=== PATIENT | female | born 1950 | race American Indian/Alaskan Native ===

== ENCOUNTER 2018-09-08 00:21 | Observation (INO) | payer SELFPAY ==
[2018-09-08 01:10] LABS: Basophils % (Auto) 0.1 % (0.0-1.8); Hematocrit 41.2 % (30.3-42.9); Hemoglobin 13.9 gm/dl (10.1-14.3); Lymphocytes % (Auto) 7.9 % (13.4-35.0); Mean Corpuscular HGB Conc 34 % (30-34); Mean Corpuscular Volume 86 fl (79-97); Monocytes # (Auto) 0.6 K/mm3 (0.0-0.8); Monocytes % (Auto) 4.9 % (0.0-7.3); Platelet Count 278 K/mm3 (140-440); Red Blood Count 4.79 M/mm3 (3.65-5.03); Red Cell Distribution Width 13.6 % (13.2-15.2)
[2018-09-08 01:36] LABS: Alanine Aminotransferase 16 units/L (7-56); Albumin 4.1 g/dL (3.9-5); BUN/Creatinine Ratio 14; Blood Urea Nitrogen 11 mg/dL (7-17); Calcium 9.5 mg/dL (8.4-10.2); Hemolysis Index 9
[2018-09-08 03:48] LABS: Bacteria,Urine 1+ /HPF (Negative); Bilirubin,Urine NEG (Negative); Blood,Urine SM (Negative); Color,Urine Yellow (Yellow); Mucus,Urine FEW /HPF
[2018-09-08] MEDS: NACL 0.9% 1000 ML 1,000 ML IV ONE ×2 (04:11→06:38)
[2018-09-08] MEDS ORDERED: ZOFRAN ONE (06:32)
[2018-09-08] MEDS ORDERED: TORADOL ONE (06:32)
[2018-09-08] MEDS ORDERED: TORADOL IV ONE (06:42)
[2018-09-08] MEDS ORDERED: ZOFRAN IV ONE (06:42)
--- NOTE | 2018-09-08 07:10 | Emergency Department Report ---
ED Abdominal Pain HPI - General Chief Complaint: Abdominal Pain Stated Complaint: EMESIS Source: patient Mode of arrival: Wheelchair Limitations: No Limitations - History of Present Illness Initial Comments: This is a 68-year-old -[place] female who presents with nausea, vomiting, no abdominal pain starting yesterday. Patient states she went to an urgent care clinic and was started on Zofran and told to modify diet. She was told to follow-up in the emergency room if symptoms increase. Patient reports pain is 10 out of 10 on pain scale and sharp stabbing sensation. She denies diarrhea, chest pain, urinary frequency, urgency, dysuria, hematuria. MD Complaint: abdominal pain Severity scale (0 -10): 5 - Related Data Allergies Allergy/AdvReac Type Severity Reaction Status Date / Time acetaminophen [From Vicodin] Allergy Unknown Verified 09/08/18 00:38 hydrocodone [From Vicodin] Allergy Unknown Verified 09/08/18 00:38 ondansetron Allergy Unknown Verified 09/08/18 00:38 ED Review of Systems ROS: Stated complaint: EMESIS Other details as noted in HPI ED Past Medical Hx - Past Medical History Previous Medical History?: No - Surgical History Past Surgical History?: Yes Additional Surgical History: - Social History Smoking Status: Never Smoker Substance Use Type: None ED Physical Exam - General Limitations: No Limitations ED Course Vital Signs 09/08/18 09/08/18 00:36 05:12 Temperature 97.9 F 98.0 F Pulse Rate 72 81 Respiratory 18 18 Rate Blood Pressure 109/60 126/61 O2 Sat by Pulse 98 99 Oximetry ED Medical Decision Making - Lab Data Result diagrams: 09/08/18 00:49 09/08/18 00:49 Lab Results 09/08/18 09/08/18 09/08/18 Range/Units 00:49 00:49 01:32 WBC 12.3 H (4.5-11.0) K/mm3 RBC 4.79 (3.65-5.03) M/mm3 Hgb 13.9 (10.1-14.3) gm/dl Hct 41.2 (30.3-42.9) % MCV 86 (79-97) fl MCH 29 (28-32) pg MCHC 34 (30-34) % RDW 13.6 (13.2-15.2) % Plt Count 278 (140-440) K/mm3 Lymph % (Auto) 7.9 L (13.4-35.0) % [place] % (Auto) 4.9 (0.0-7.3) % Eos % (Auto) 0.0 (0.0-4.3) % Baso % (Auto) 0.1 (0.0-1.8) % Lymph # 1.0 L (1.2-5.4) K/mm3 [place] # 0.6 (0.0-0.8) K/mm3 Eos # 0.0 (0.0-0.4) K/mm3 Baso # 0.0 (0.0-0.1) K/mm3 Seg Neutrophils % 87.1 H (40.0-70.0) % Seg Neutrophils # 10.7 H (1.8-7.7) K/mm3 Sodium 136 L (137-145) mmol/L Potassium 3.8 (3.6-5.0) mmol/L Chloride 98.5 (98-107) mmol/L Carbon Dioxide 21 L (22-30) mmol/L Anion Gap 20 mmol/L BUN 11 (7-17) mg/dL Creatinine 0.8 (0.7-1.2) mg/dL Estimated GFR > 60 ml/min BUN/Creatinine Ratio 14 % Glucose 128 H (65-100) mg/dL Calcium 9.5 (8.4-10.2) mg/dL Total Bilirubin 0.70 (0.1-1.2) mg/dL AST 18 (5-40) units/L ALT 16 (7-56) units/L Alkaline Phosphatase 102 (35-129) units/L Total Protein 7.4 (6.3-8.2) g/dL Albumin 4.1 (3.9-5) g/dL Albumin/Globulin Ratio 1.2 % Lipase 17 (13-60) units/L Urine Color Yellow (Yellow) Urine Turbidity Clear (Clear) Urine pH 6.0 (5.0-7.0) Ur Specific [place] 1.039 H (1.003-1.030) Urine Protein 30 mg/dl (Negative) mg/dL Urine Glucose (UA) Neg (Negative) mg/dL Urine Ketones Tr (Negative) mg/dL Urine Blood Sm (Negative) Urine Nitrite Neg (Negative) Urine Bilirubin Neg (Negative) Urine Urobilinogen 4.0 (<2.0) mg/dL Ur Leukocyte Esterase Neg (Negative) Urine WBC (Auto) 4.0 (0.0-6.0) /HPF Urine RBC (Auto) 11.0 (0.0-6.0) /HPF U Epithel Cells (Auto) 5.0 (0-13.0) /HPF Urine Bacteria (Auto) 1+ (Negative) /HPF Urine Mucus Few /HPF - Radiology Data Radiology results: report reviewed CT ABDOMEN PELVIS WITH CONTRAST: HISTORY: Diffuse abdominal tenderness. COMPARISON: none. TECHNIQUE: Helical CT in 1.25mm intervals following IV contrast. Sagittal and coronal reconstructions. FINDINGS: Lung bases: Trace bilateral pleural effusions. The visualized lung bases are adequately aerated. Normal heart size. Liver: Normal. Biliary system: Normal. Pancreas: Normal. Spleen: Normal. Kidneys/ureters/bladder: Normal. Adrenal glands: Normal. Aorta: Normal. Intestines: Within normal limits. Appendix: An appendicolith is identified near the base of the appendix. The appendix is dilated up to 1.5 cm in diameter and demonstrates mucosal enhancement and surrounding inflammatory changes. There is a small amount of pelvic ascites but no abscess or free air is appreciated. Pelvic viscera: There are a few calcifications in the anterior uterine wall suggesting mild uterine fibroid disease. The adnexa are unremarkable. Ascites: Small pelvic ascites. Adenopathy: None. Musculoskeletal: Mild thoracolumbar spondylosis. IMPRESSION: Acute appendicitis. No evidence for rupture at this time. Trace bilateral pleural effusions. Mild uterine fibroid disease. - Medical Decision Making Patient was examined by me. Vitals are normal and patient is in no acute distress. IV site initiated. Given normal saline, Toradol, and Zofran. Obtained a labs and CT of abdomen and pelvis with contrast. The leukocytosis, although the labs are unremarkable. CT dictated per radiologist report reviewed by myself. Acute appendicitis. No evidence for rupture at this time. Trace bilateral pleural effusions. Mild uterine fibroid disease. Consulted with standing. Consult general surgeon Dr. Calixto. Patient will be admitted for surgery. Consulted hospitalist Dr. Herring for admission. Given zosyn 4.5 gm and morphine 2 mg IV. Pending admission. Critical care attestation.: If time is entered above; I have spent that time in minutes in the direct care of this critically ill patient, excluding procedure time. ED Disposition Clinical Impression: Nausea and vomiting in adult Acute appendicitis Qualifiers: Acute appendicitis type: with localized peritonitis Appendicitis gangrene presence: without gangrene Appendicitis perforation presence: without perforation Appendicitis abscess presence: unspecified whether abscess present Qualified Code(s): K35.30 - Acute appendicitis with localized peritonitis, without perforation or gangrene Abdominal pain Qualifiers: Abdominal location: generalized Qualified Code(s): R10.84 - Generalized abdominal pain Disposition: -09 OP ADMIT IP TO THIS HOSP Is pt being admited?: Yes Condition: Stable Instructions: Abdominal Pain (ED) Referrals: LIDA SANCHEZ MD [Primary Care Provider] - 3-5 Days
--- NOTE | 2018-09-08 08:40 | Cat Scan Report ---
CT ABDOMEN PELVIS WITH CONTRAST: HISTORY: Diffuse abdominal tenderness. COMPARISON: none. TECHNIQUE: Helical CT in 1.25mm intervals following IV contrast. Sagittal and coronal reconstructions. FINDINGS: Lung bases: Trace bilateral pleural effusions. The visualized lung bases are adequately aerated. Normal heart size. Liver: Normal. Biliary system: Normal. Pancreas: Normal. Spleen: Normal. Kidneys/ureters/bladder: Normal. Adrenal glands: Normal. Aorta: Normal. Intestines: Within normal limits. Appendix: An appendicolith is identified near the base of the appendix. The appendix is dilated up to 1.5 cm in diameter and demonstrates mucosal enhancement and surrounding inflammatory changes. There is a small amount of pelvic ascites but no abscess or free air is appreciated. Pelvic viscera: There are a few calcifications in the anterior uterine wall suggesting mild uterine fibroid disease. The adnexa are unremarkable. Ascites: Small pelvic ascites. Adenopathy: None. Musculoskeletal: Mild thoracolumbar spondylosis. IMPRESSION: Acute appendicitis. No evidence for rupture at this time. Trace bilateral pleural effusions. Mild uterine fibroid disease. These findings were discussed with Shawna Barber in the emergency department at 0832 hours
[2018-09-08] MEDS ORDERED: ZOSYN/NS 4.5GM/100ML 4.5 GM/100 ML VIAL IV ONE (08:57)
[2018-09-08] MEDS ORDERED: MORPHINE IV ONE (09:11)
[2018-09-08] MEDS ORDERED: REGLAN IV PRN (10:56)
--- NOTE | 2018-09-08 11:02 | History and Physical Report ---
History of Present Illness Date of examination: 09/08/18 Date of admission: 09/08/18 09:03 Chief complaint: N/V and Abdominal pains History of present illness: Patient is a 68 yo woman without chronic medical problems who presents to [facility] ED with severe sharp constant Right sided abdominal pains and radiating pains across entire abdomen in a band like fashion. She was at her baseline until yesterday morning when she felt nauseated and she drunk Jazmín skye without r elief. She went to work at [employer] and started vomiting repeatedly. 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 She was given Ondansetron and advise to sip on water for 24 hours. She continued to have nausea and vomiting so she listed Ondansetron as a drug allergy (Vicodin also listed as drug allergy and it causes n/v). The right sided abdominal pains worsened and she decided to come to the ER today. She denies fever, chills, chest pains, sob, cough. PMH: as hpi PSH: x 1 SH: nonsmoker, no alcohol or drug abuse FH: mother of unspecified cancer ROS: Constitutional: denies: fever ENT: denies: throat or neck pain Respiratory: denies: cough, shortness of breath Cardiovascular: denies: chest pain Endocrine: denies unexplained weight loss or gain Gastrointestinal: + abdominal pain, nausea Genitourinary: denies: dysuria Rectal: denies no incontinence, no bleeding, no itching, no discharge Musculoskeletal: denies swelling, myaglia, muscle weakness Skin: denies: rash Neurological: denies: headache Hematological/Lymphatic: denies: easy bleeding or easy bruising Allergic/Immunologic: no urticaria, no allergic rhinitis, no anaphylaxis Psych: denies sadness or hopelessness, SI/HI Medications and Allergies Allergies Allergy/AdvReac Type Severity Reaction Status Date / Time acetaminophen [From Vicodin] Allergy Unknown Verified 09/08/18 00:38 hydrocodone [From Vicodin] Allergy Unknown Verified 09/08/18 00:38 ondansetron Allergy Unknown Verified 09/08/18 00:38 Home Medications Medication Instructions Recorded Confirmed Last Taken Type No Known Home Medications [No 09/08/18 09/08/18 Unknown History Reported Home Medications] Active Meds: Active Medications Heparin Sodium (Porcine) (Heparin) 5,000 unit SUB-Q Q12HR PIA Sodium Chloride (Nacl 0.9% 1000 Ml) 1,000 mls @ 100 mls/hr IV DIRECT PIA Metoclopramide HCl (Reglan) 10 mg IV Q8H PRN PRN Reason: Nausea And Vomiting Morphine Sulfate (Morphine) 2 mg IV Q4H PRN PRN Reason: Pain , Severe (7-10) Exam - Physical Exam Narrative exam: Gen: WDWN, NAD, Awake, Alert, Orientated HEENT: NCAT, EOMI, PERRL, OP dry, missing teeth Neck: supple, no adenopathy, no thyromegaly, no JVD CVS/Heart: RRR, normal S1S2, pulses present bilaterally Chest/Lungs: CTA B, Symmetrical chest expansion, good air entry bilaterally GI/Abdomen: soft, right sided tenderness with guarding and diffuse tender, good bowel sounds, /Bladder: no suprapubic tenderness, no CVA or paraspinal tenderness Extermity/Skin: no c/c/e, no obvious rash MSK: FROM x 4 Neuro: CN 2-12 grossly intact, no new focal deficits Psych: calm - Constitutional Vitals: Temp Pulse Resp BP Pulse Ox 97.8 F 82 16 103/44 100 09/08/18 09:55 09/08/18 09:55 09/08/18 09:55 09/08/18 09:55 09/08/18 09:55 Results - Labs CBC & Chem 7: 09/08/18 00:49 09/08/18 00:49 Labs: Abnormal lab results 09/08/18 09/08/18 09/08/18 Range/Units 00:49 00:49 01:32 WBC 12.3 H (4.5-11.0) K/mm3 Lymph % (Auto) 7.9 L (13.4-35.0) % Lymph # 1.0 L (1.2-5.4) K/mm3 Seg Neutrophils % 87.1 H (40.0-70.0) % Seg Neutrophils # 10.7 H (1.8-7.7) K/mm3 Sodium 136 L (137-145) mmol/L Carbon Dioxide 21 L (22-30) mmol/L Glucose 128 H (65-100) mg/dL Ur Specific [place] 1.039 H (1.003-1.030) Assessment and Plan Patient is a 68 yo woman without chronic medical problems who presents to [facility] ED with severe sharp constant Right sided abdominal pains and radiating pains across entire abdomen in a band like fashion. She was at her baseline until yesterday morning when she felt nauseated and she drunk Jazmín skye without relief. She went to work at [employer] and started vomiting repeatedly. 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 She was given Ondansetron and advise to sip on water for 24 hours. She continued to worsening symptoms, so she came to the ED. She was found to have acute appendicitis * CT abd/pelvis with contrast IMPRESSION: Acute appendicitis. No evidence for rupture at this time. Trace bilateral pleural effusions. Mild uterine fibroid disease. These findings were discussed with Shawna Barber in the emergency department at 0832 hours -Acute appendicitis: bowel rest/NPO, consult GS to manage, treat with ivf, iv n arcotics for pain and iv reglan for n/v, possible surgery -Leukocytosis, reactive due to above -DVT prophylaxis: sq heparin -GI prophylaxis: iv protonix home rec reviewed full code
[2018-09-08] MEDS ORDERED: NACL 0.9% 1000 ML 1,000 ML IV SCH (12:00)
--- NOTE | 2018-09-08 12:22 | Consultation ---
History of Present Illness Consult date: 09/08/18 Reason for consult: abdominal pain Requesting physician: HORACIO LOCKHART Chief complaint: abdominal pain - History of present illness History of present illness: 68yo F with acute onset of RLQ pain since yesterday. + N/V. Was initially seen in the urgent care. Came in to the ED due to worsening of the pain. CT eval showed an enlarged appendix consistent with appendicitis. Past History Past Medical History: No medical history Past Surgical History: Social history: denies: smoking, alcohol abuse Family history: no significant family history Medications and Allergies Allergies Allergy/AdvReac Type Severity Reaction Status Date / Time acetaminophen [From Vicodin] Allergy Unknown Verified 09/08/18 00:38 hydrocodone [From Vicodin] Allergy Unknown Verified 09/08/18 00:38 ondansetron Allergy Unknown Verified 09/08/18 00:38 Home Medications Medication Instructions Recorded Confirmed Last Taken Type No Known Home Medications [No 09/08/18 09/08/18 Unknown History Reported Home Medications] Active Meds: Active Medications Heparin Sodium (Porcine) (Heparin) 5,000 unit SUB-Q Q12HR [facility] Sodium Chloride (Nacl 0.9% 1000 Ml) 1,000 mls @ 100 mls/hr IV DIRECT PIA Metoclopramide HCl (Reglan) 10 mg IV Q8H PRN PRN Reason: Nausea And Vomiting Morphine Sulfate (Morphine) 2 mg IV Q4H PRN PRN Reason: Pain , Severe (7-10) Pantoprazole Sodium (Protonix) 40 mg IV QDAY [facility] Review of Systems - Constitutional no fever, no chills, no chronic pain - Cardiovascular no chest pain - Respiratory no cough, no dyspnea on exertion - Gastrointestinal abdominal pain, nausea, vomiting, change in bowel habits, dyspepsia/bloating, no hematemesis, no coffee ground emesis, no BRBPR, no melena, no hematochezia - Muskuloskeletal no low back pain - Integumentary no rash, no pruritis, no wounds Exam Vital Signs Temp Pulse Resp BP Pulse Ox 97.9 F 72 18 109/60 98 09/08/18 00:36 09/08/18 00:36 09/08/18 00:36 09/08/18 00:36 09/08/18 00:36 - General physical appearance Positive: no distress, no pain, other (smiling) - Eyes Positive: normal occular movement - Respiratory Positive: normal expansion, clear to auscultation - Cardiovascular Rhythm: regular - Abdomen Abdomen: Present: soft, tender (generalized. maximum in the RLQ. No pelvic shake tenderness. ), distended (minimal). Absent: guarding, rigid - Integumentary no rash, no growths, no abnormal pigmentation - Neurologic Neurologic: alert and oriented to time, place and person, motor strength and sensation are grossly intact - Psychiatric Psychiatric: appropriate mood/affect, intact judgment & insight Results - Labs 09/08/18 00:49 09/08/18 00:49 Abnormal lab results 09/08/18 09/08/18 09/08/18 Range/Units 00:49 00:49 01:32 WBC 12.3 H (4.5-11.0) K/mm3 Lymph % (Auto) 7.9 L (13.4-35.0) % Lymph # 1.0 L (1.2-5.4) K/mm3 Seg Neutrophils % 87.1 H (40.0-70.0) % Seg Neutrophils # 10.7 H (1.8-7.7) K/mm3 Sodium 136 L (137-145) mmol/L Carbon Dioxide 21 L (22-30) mmol/L Glucose 128 H (65-100) mg/dL Ur Specific [place] 1.039 H (1.003-1.030) Diabetes panel 09/08/18 Range/Units 00:49 Sodium 136 L (137-145) mmol/L Potassium 3.8 (3.6-5.0) mmol/L Chloride 98.5 (98-107) mmol/L Carbon Dioxide 21 L (22-30) mmol/L BUN 11 (7-17) mg/dL Creatinine 0.8 (0.7-1.2) mg/dL Glucose 128 H (65-100) mg/dL Calcium 9.5 (8.4-10.2) mg/dL AST 18 (5-40) units/L ALT 16 (7-56) units/L Alkaline Phosphatase 102 (35-129) units/L Total Protein 7.4 (6.3-8.2) g/dL Albumin 4.1 (3.9-5) g/dL Calcium panel 09/08/18 Range/Units 00:49 Calcium 9.5 (8.4-10.2) mg/dL Albumin 4.1 (3.9-5) g/dL Pituitary panel 09/08/18 Range/Units 00:49 Sodium 136 L (137-145) mmol/L Potassium 3.8 (3.6-5.0) mmol/L Chloride 98.5 (98-107) mmol/L Carbon Dioxide 21 L (22-30) mmol/L BUN 11 (7-17) mg/dL Creatinine 0.8 (0.7-1.2) mg/dL Glucose 128 H (65-100) mg/dL Calcium 9.5 (8.4-10.2) mg/dL Adrenal panel 09/08/18 Range/Units 00:49 Sodium 136 L (137-145) mmol/L Potassium 3.8 (3.6-5.0) mmol/L Chloride 98.5 (98-107) mmol/L Carbon Dioxide 21 L (22-30) mmol/L BUN 11 (7-17) mg/dL Creatinine 0.8 (0.7-1.2) mg/dL Glucose 128 H (65-100) mg/dL Calcium 9.5 (8.4-10.2) mg/dL Total Bilirubin 0.70 (0.1-1.2) mg/dL AST 18 (5-40) units/L ALT 16 (7-56) units/L Alkaline Phosphatase 102 (35-129) units/L Total Protein 7.4 (6.3-8.2) g/dL Albumin 4.1 (3.9-5) g/dL - Imaging CT scan - abdomen: report reviewed, image reviewed CT scan - pelvis: report reviewed, image reviewed Assessment and Plan - Patient Problems (1) Acute appendicitis Current Visit: Yes Status: Acute Qualifiers: Acute appendicitis type: with localized peritonitis Appendicitis gangrene presence: without gangrene Appendicitis perforation presence: without perforation Appendicitis abscess presence: unspecified whether abscess present Qualified Code(s): K35.30 - Acute appendicitis with localized peritonitis, without perforation or gangrene Plan to address problem: Pt stable. appears to be acute, non-ruptured appendicitis. Discussed options of surgery vs medical mgmt. Pros and cons discussed of each. Pt elected surgery. I agree with that decision. Procedure, risks, benefits discussed. All questions answered. Consent obtained. Proceed to OR today. time=30min
[2018-09-08] MEDS: NACL 0.9% 1000 ML 1,000 ML IV SCH (14:35)
--- NOTE | 2018-09-08 14:57 | Anesthesia Day of Surgery ---
Anesthesia Day of Surgery - Day of Surgery Patient Examined: Yes Patient H&P Reviewed: Yes Patient is NPO: Yes
--- NOTE | 2018-09-08 14:58 | Anesthesia Consultation ---
Anesthesia Consult and Med Hx Date of service: 09/08/18 - Airway Anesthetic Teeth Evaluation: Good ROM Head & Neck: Adequate Mental/Hyoid Distance: Adequate Mallampati Class: Class III Intubation Access Assessment: Probably Good - Pre-Operative Health Status ASA Pre-Surgery Classification: ASA2, Emergency Proposed Anesthetic Plan: General
[2018-09-08] MEDS ORDERED: VERSED IV NR (15:00)
[2018-09-08] MEDS ORDERED: SUBLIMAZE IV PRN (15:15)
[2018-09-08] MEDS ORDERED: MORPHINE IV NR (15:15)
[2018-09-08] MEDS ORDERED: DILAUDID IV PRN (15:30)
[2018-09-08] MEDS ORDERED: XYLOCAINE 1% 20 mL ONE (15:51)
[2018-09-08] MEDS ORDERED: MARCAINE-EPI 0.5%-1:200,000 INFILTRATI ONE ×2 (15:52→16:01)
[2018-09-08] MEDS ORDERED: QUELICIN ONE (15:56)
[2018-09-08] MEDS ORDERED: DIPRIVAN 10 MG/ML IV ONE (15:56)
[2018-09-08] MEDS ORDERED: DILAUDID ONE (15:56)
[2018-09-08] MEDS ORDERED: ZEMURON IV ONE (15:56)
[2018-09-08] MEDS ORDERED: XYLOCAINE MPF 2% ONE (15:59)
[2018-09-08] MEDS ORDERED: ZOSYN/NS 4.5GM/100ML 4.5 GM/100 ML VIAL IV SCH (16:00)
[2018-09-08] MEDS ORDERED: NACL 0.9% IR ONE (16:01)
[2018-09-08] MEDS ORDERED: XYLOCAINE 1% 20 mL INFILTRATI ONE (16:01)
[2018-09-08] MEDS ORDERED: WATER FOR IRRIG STERILE IR ONE (16:01)
[2018-09-08] MEDS ORDERED: ROBINUL ONE (17:14)
[2018-09-08] MEDS ORDERED: BLOXIVERZ ONE (17:14)
[2018-09-08] MEDS ORDERED: NACL 0.9% 1000 ML 1,000 ML ONE (17:18)
--- NOTE | 2018-09-08 17:26 | Post Operative Note ---
Date of procedure: 09/08/18 (dictation:[id number]) Pre-op diagnosis: acute appendicitis Post-op diagnosis: other (acute suppurative appendicitis) Findings: enlarged, inflamed appendix densely adhered to surrounding small bowel Procedure: lap appy Anesthesia: GETA Surgeon: EMMY FELIX Estimated blood loss: minimal Pathology: list (appendix) Specimen disposition: to lab Condition: stable Disposition: PACU
[2018-09-08] MEDS: MORPHINE IV PRN (20:35)
[2018-09-09] MEDS: MORPHINE IV PRN ×3 (04:15→13:13)
[2018-09-09] MEDS: NACL 0.9% 1000 ML 1,000 ML IV SCH (08:15)
[2018-09-09] MEDS: PROTONIX IV SCH ×2 (08:16→09:03)
[2018-09-09 08:50] LABS: Hematocrit 35.1 % (30.3-42.9); Hemoglobin 11.7 gm/dl (10.1-14.3); Mean Corpuscular HGB Conc 33 % (30-34); Mean Corpuscular Volume 88 fl (79-97); Platelet Count 213 K/mm3 (140-440); Red Blood Count 3.97 M/mm3 (3.65-5.03); Red Cell Distribution Width 14.1 % (13.2-15.2)
[2018-09-09 09:06] LABS: BUN/Creatinine Ratio 16; Blood Urea Nitrogen 13 mg/dL (7-17); Calcium 8.4 mg/dL (8.4-10.2); Hemolysis Index 1
[2018-09-09] MEDS ORDERED: HEPARIN SUB-Q SCH (13:00)
[2018-09-09 16:06] VITALS: BP 122/54
--- NOTE | 2018-09-09 16:17 | Progress Note ---
Assessment and Plan Assessment and plan: Patient is a 68 yo woman without chronic medical problems who presents to [facility] ED with severe sharp constant Right sided abdominal pains and radiating pains across entire abdomen in a band like fashion. She was at her baseline until yesterday morning when she felt nauseated and she drunk Jazmín skye without relief. She went to work at [employer] and started vomiting repeatedly. 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 She was given Ondansetron and advise to sip on water for 24 hours. She continued to worsening symptoms, so she came to the ED. She was found to have acute appendicitis * CT abd/pelvis with contrast IMPRESSION: Acute appendicitis. No evidence for rupture at this time. Trace bilateral pleural effusions. Mild uterine fibroid disease. These findings were discussed with Shawna Barber in the emergency department at 0832 hours -Acute appendicitis s/p lap appy on 09/08/18: GS is managing -Leukocytosis, reactive due to above -DVT prophylaxis: sq heparin -GI prophylaxis: iv protonix home rec reviewed full code History Interval history: Patient was seen and examined. Follow-up on current diagnosis. Overnight unev entful. Patient denies any chest pain, shortness breath, nausea/vomiting or severe headaches. Imaging, nursing note, chart, labs and old chart reviewed. Discussed with patient. Hospitalist Physical - Physical exam Narrative exam: Gen: WDWN, NAD, Awake, Alert, Orientated HEENT: NCAT, EOMI, PERRL, OP dry, missing teeth Neck: supple, no adenopathy, no thyromegaly, no JVD CVS/Heart: RRR, normal S1S2, pulses present bilaterally Chest/Lungs: CTA B, Symmetrical chest expansion, good air entry bilaterally GI/Abdomen: soft, right sided tenderness with guarding and diffuse tender, good bowel sounds, /Bladder: no suprapubic tenderness, no CVA or paraspinal tenderness Extermity/Skin: no c/c/e, no obvious rash MSK: FROM x 4 Neuro: CN 2-12 grossly intact, no new focal deficits Psych: calm - Constitutional Vitals: Temp Pulse Resp BP Pulse Ox 99.8 F H 84 18 122/54 92 09/09/18 15:40 09/09/18 15:40 09/09/18 15:40 09/09/18 15:40 09/09/18 15:40 Results - Labs CBC & Chem 7: 09/09/18 08:21 09/09/18 08:21 Labs: Laboratory Last Values WBC 10.8 K/mm3 (4.5-11.0) 09/09/18 08:21 RBC 3.97 M/mm3 (3.65-5.03) 09/09/18 08:21 Hgb 11.7 gm/dl (10.1-14.3) 09/09/18 08:21 Hct 35.1 % (30.3-42.9) D 09/09/18 08:21 MCV 88 fl (79-97) 09/09/18 08:21 MCH 30 pg (28-32) 09/09/18 08:21 MCHC 33 % (30-34) 09/09/18 08:21 RDW 14.1 % (13.2-15.2) 09/09/18 08:21 Plt Count 213 K/mm3 (140-440) 09/09/18 08:21 Lymph % (Auto) 7.9 % (13.4-35.0) L 09/08/18 00:49 Loving % (Auto) 4.9 % (0.0-7.3) 09/08/18 00:49 Eos % (Auto) 0.0 % (0.0-4.3) 09/08/18 00:49 Baso % (Auto) 0.1 % (0.0-1.8) 09/08/18 00:49 Lymph # 1.0 K/mm3 (1.2-5.4) L 09/08/18 00:49 Loving # 0.6 K/mm3 (0.0-0.8) 09/08/18 00:49 Eos # 0.0 K/mm3 (0.0-0.4) 09/08/18 00:49 Baso # 0.0 K/mm3 (0.0-0.1) 09/08/18 00:49 Seg Neutrophils % 87.1 % (40.0-70.0) H 09/08/18 00:49 Seg Neutrophils # 10.7 K/mm3 (1.8-7.7) H 09/08/18 00:49 Sodium 139 mmol/L (137-145) 09/09/18 08:21 Potassium 3.7 mmol/L (3.6-5.0) 09/09/18 08:21 Chloride 105.6 mmol/L (98-107) 09/09/18 08:21 Carbon Dioxide 24 mmol/L (22-30) 09/09/18 08:21 Anion Gap 13 mmol/L 09/09/18 08:21 BUN 13 mg/dL (7-17) 09/09/18 08:21 Creatinine 0.8 mg/dL (0.7-1.2) 09/09/18 08:21 Estimated GFR > 60 ml/min 09/09/18 08:21 BUN/Creatinine Ratio 16 % 09/09/18 08:21 Glucose 100 mg/dL (65-100) 09/09/18 08:21 Calcium 8.4 mg/dL (8.4-10.2) 09/09/18 08:21 Total Bilirubin 0.70 mg/dL (0.1-1.2) 09/08/18 00:49 AST 18 units/L (5-40) 09/08/18 00:49 ALT 16 units/L (7-56) 09/08/18 00:49 Alkaline Phosphatase 102 units/L (35-129) 09/08/18 00:49 Total Protein 7.4 g/dL (6.3-8.2) 09/08/18 00:49 Albumin 4.1 g/dL (3.9-5) 09/08/18 00:49 Albumin/Globulin Ratio 1.2 % 09/08/18 00:49 Lipase 17 units/L (13-60) 09/08/18 00:49 Urine Color Yellow (Yellow) 09/08/18 01:32 Urine Turbidity Clear (Clear) 09/08/18 01:32 Urine pH 6.0 (5.0-7.0) 09/08/18 01:32 Ur Specific Banner 1.039 (1.003-1.030) H 09/08/18 01:32 Urine Protein 30 mg/dl mg/dL (Negative) 09/08/18 01:32 Urine Glucose (UA) Neg mg/dL (Negative) 09/08/18 01:32 Urine Ketones Tr mg/dL (Negative) 09/08/18 01:32 Urine Blood Sm (Negative) 09/08/18 01:32 Urine Nitrite Neg (Negative) 09/08/18 01:32 Urine Bilirubin Neg (Negative) 09/08/18 01:32 Urine Urobilinogen 4.0 mg/dL (<2.0) 09/08/18 01:32 Ur Leukocyte Esterase Neg (Negative) 09/08/18 01:32 Urine WBC (Auto) 4.0 /HPF (0.0-6.0) 09/08/18 01:32 Urine RBC (Auto) 11.0 /HPF (0.0-6.0) 09/08/18 01:32 U Epithel Cells (Auto) 5.0 /HPF (0-13.0) 09/08/18 01:32 Urine Bacteria (Auto) 1+ /HPF (Negative) 09/08/18 01:32 Urine Mucus Few /HPF 09/08/18 01:32 Active Medications - Current Medications Current Medications: Generic Name Dose Route Start Last Admin Trade Name Freq PRN Reason Stop Dose Admin Heparin Sodium (Porcine) 5,000 unit 09/09/18 13:00 09/09/18 13:12 Heparin SUB-Q 5,000 unit Q12HR PIA Administration Sodium Chloride 1,000 mls @ 75 mls/hr 09/08/18 15:00 09/09/18 08:15 Nacl 0.9% 1000 Ml IV 75 mls/hr DIRECT PIA Administration Metoclopramide HCl 10 mg 09/08/18 10:56 Reglan IV Q8H PRN Nausea And Vomiting Morphine Sulfate 2 mg 09/08/18 10:56 09/09/18 13:13 Morphine IV 2 mg Q4H PRN Administration Pain , Severe (7-10) Pantoprazole Sodium 40 mg 09/09/18 10:00 09/09/18 09:03 Protonix IV Not Given QDAY PIA
--- NOTE | 2018-09-09 16:25 | Discharge Summary ---
Providers - Providers Date of Admission: 09/08/18 09:03 Date of discharge: 09/09/18 Attending physician: HORACIO LOCKHART 09/08/18 09:05 Consult to Physician [CONS] Stat Comment: Consulting Provider: EMMY CALIXTO Physician Instructions: Reason For Exam: acute appendicitis [facility] Condition: Stable Hospital course: Patient is a 68 yo woman without chronic medical problems who presents to [facility] ED with severe sharp constant Right sided abdominal pains and radiating pains across entire abdomen in a band like fashion. She was at her baseline until yesterday morning when she felt nauseated and she drunk Jazmín skye without relief. She went to work at [employer] and started vomiting repeatedly. 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 She was given Ondansetron and advise to sip on water for 24 hours. She continued to worsening symptoms, so she came to the ED. She was found to have acute appendicitis * CT abd/pelvis with contrast IMPRESSION: Acute appendicitis. No evidence for rupture at this time. Trace bilateral pleural effusions. Mild uterine fibroid disease. These findings were discussed with Shawna Barber in the emergency department at 0832 hours -Acute suppurative appendicitis s/p lap appy on 09/08/18: GS is managing, d/w noman Faria to discharge on 1 week of abx -Leukocytosis, reactive due to above -DVT prophylaxis: sq heparin -GI prophylaxis: iv protonix home rec reviewed full code Disposition: DC-01 TO HOME OR SELFCARE Time spent for discharge: 35 minutes Core Measure Documentation - Palliative Care Palliative Care/ Comfort Measures: Not Applicable - Core Measures Any of the following diagnoses?: none - VTE Discharge Requirements Deep Vein Thrombosis/Pulmonary Embolism Present on Admission: No Has pt received <5 days of overlap therapy or INR<2.0: No Anticoagulant overlap therapy prescribed at discharge: No Contraindication No Overlap Therapy order at DC: Not Indicated Exam - Physical Exam Narrative exam: Gen: WDWN, NAD, Awake, Alert, Orientated x3 HEENT: NCAT, EOMI, PERRL, OP dry, missing teeth Neck: supple, no adenopathy, no thyromegaly, no JVD CVS/Heart: RRR, normal S1S2, pulses present bilaterally Chest/Lungs: CTA B, Symmetrical chest expansion, good air entry bilaterally GI/Abdomen: soft, lap appy incisinal tenderness which are c/d/i good bowel sounds, /Bladder: no suprapubic tenderness, no CVA or paraspinal tenderness Extermity/Skin: no c/c/e, no obvious rash MSK: FROM x 4 Neuro: CN 2-12 grossly intact, no new focal deficits Psych: calm - Constitutional Vitals: Temp Pulse Resp BP Pulse Ox 99.8 F H 84 18 122/54 92 09/09/18 15:40 09/09/18 15:40 09/09/18 15:40 09/09/18 15:40 09/09/18 15:40 Plan Activity: other (no strenous activity until cleared by Dr. Calixto) Diet: clear liquids, advance as tolerated [facility]Primary Care Provider[facility] - 3-5 Days EMMY CALIXTO MD [Staff Physician] - 7 Days Prescriptions: Amoxicillin/Potassium Clav [Augmentin 875-125 Tablet] 1 each PO BID #14 tablet Ibuprofen 600 mg PO TID PRN #20 tablet PRN Reason: Pain , Severe (7-10) Pantoprazole [Protonix] 40 mg PO QDAY #7 tablet
--- NOTE | 2018-09-09 20:51 | Progress Note ---
Assessment and Plan - Patient Problems (1) Acute appendicitis Status: Acute Qualifiers: Acute appendicitis type: with localized peritonitis Appendicitis gangrene presence: without gangrene Appendicitis perforation presence: without perforation Appendicitis abscess presence: unspecified whether abscess present Qualified Code(s): K35.30 - Acute appendicitis with localized peritonitis, without perforation or gangrene Plan to address problem: Pt stable. s/p lap appy - 09/08/18 - POD#1. Pt will take a little longer to fully recover due to the suppurative nature of the appendicitis. ok for discharge to home. 1) advance diet as tolerated 2) PO Abx to complete 1 week 3) ambulate frequently 4) f/u in office in 2 weeks 5) May shower tomorrow. Pat dry wounds. Please call with questions. Subjective Date of service: 09/09/18 Patient Reports: Positive: still having pain (across lower abdomen. RLQ pain is better.), tolerating liquids well, afebrile. Negative: nausea, vomiting Objective Vital Signs - 12hr 09/09/18 09/09/18 11:50 15:40 Temperature 98.9 F 99.8 F H Pulse Rate 82 84 Respiratory 19 18 Rate Blood Pressure 112/51 122/54 [Right] O2 Sat by Pulse 95 92 Oximetry - General physical appearance no distress, other (mild pain) - Eyes normal occular movement - Respiratory normal expansion, normal respiratory effort - Abdomen soft, tender (around incisions), distended (minimal), not guarding, not rigid, surgical scars (C/D/I) - Integumentary no rash, no growths, no abnormal pigmentation - Psychiatric oriented to time, oriented to person, oriented to place, speech is normal, memory intact - Labs 09/09/18 08:21 09/09/18 08:21 Diabetes panel 09/09/18 Range/Units 08:21 Sodium 139 (137-145) mmol/L Potassium 3.7 (3.6-5.0) mmol/L Chloride 105.6 (98-107) mmol/L Carbon Dioxide 24 (22-30) mmol/L BUN 13 (7-17) mg/dL Creatinine 0.8 (0.7-1.2) mg/dL Glucose 100 (65-100) mg/dL Calcium 8.4 (8.4-10.2) mg/dL Calcium panel 09/09/18 Range/Units 08:21 Calcium 8.4 (8.4-10.2) mg/dL Pituitary panel 09/09/18 Range/Units 08:21 Sodium 139 (137-145) mmol/L Potassium 3.7 (3.6-5.0) mmol/L Chloride 105.6 (98-107) mmol/L Carbon Dioxide 24 (22-30) mmol/L BUN 13 (7-17) mg/dL Creatinine 0.8 (0.7-1.2) mg/dL Glucose 100 (65-100) mg/dL Calcium 8.4 (8.4-10.2) mg/dL Adrenal panel 09/09/18 Range/Units 08:21 Sodium 139 (137-145) mmol/L Potassium 3.7 (3.6-5.0) mmol/L Chloride 105.6 (98-107) mmol/L Carbon Dioxide 24 (22-30) mmol/L BUN 13 (7-17) mg/dL Creatinine 0.8 (0.7-1.2) mg/dL Glucose 100 (65-100) mg/dL Calcium 8.4 (8.4-10.2) mg/dL
--- NOTE | 2018-09-16 08:43 | Operative Report ---
PREOPERATIVE DIAGNOSIS: Acute appendicitis. POSTOPERATIVE DIAGNOSIS: Acute suppurative appendicitis. PROCEDURE: Laparoscopic appendectomy. ATTENDING PHYSICIAN: Dr. Calixto. ANESTHESIA: General. ESTIMATED BLOOD LOSS: Minimal. FLUIDS: 1 liter. FINDINGS: Suppurative changes in the right lower quadrant and pelvic region. The small bowel was surrounding and adhered to the cecum and appendix. It was a single mass of inflamed tissue with suppurative changes on the exterior. There was also a portion of the small bowel that was adhered to the anterior abdominal wall from the suppurative changes and inflammation. SPECIMENS: Appendix. DRAINS: None. COMPLICATIONS: None. Stable, transferred to Recovery Room. INDICATIONS: This is a 68-year-old female, who presented with greater than 24-hour history of acute onset abdominal pain with nausea, vomiting. She was initially seen in urgent care the day before and then came today to the Emergency Department for evaluation and treatment. CT scan showed changes consistent with appendicitis. The patient was assessed to be in need for surgery. Options were given for surgical versus medical therapy. Pros and cons were discussed. The patient elected surgical therapy. Procedure, risks, benefits were discussed. All questions were answered. Consent was obtained. Of note, the patient was brought to the operating room and placed on the table in supine position. After adequate general anesthesia was established, the patient was prepped and draped in the usual sterile fashion. Antibiotics had been given prior to start of the case and SCDs were in place. Time-out was called. I began by placing a Veress needle in the left upper quadrant. I was able to insufflate in the first attempt. This was then replaced with a 5 mm port. We examined the abdomen. We saw all the inflammatory and suppurative changes. Under direct vision, a 12 mm port was placed in the left lower quadrant and a 5 mm port in the suprapubic area. We then proceeded to gently take down the small bowel that was adhered to the anterior abdominal wall. We took a careful look at the cecum and the associated area. It was very difficult to tell what was small bowel versus appendix. We could not see the appendix initially as the small bowel was completely surrounding it. We mobilized the cecum from the lateral wall slightly. We gradually peeled away the small bowel layer by layer from the cecum, appendiceal area. This required very careful dissection as the bowel was inflamed. This required extra time in the dissection. After we were gently able to separate number of loops of bowel all around the right lower quadrant area, we finally were able to flip the bowel up towards the left upper quadrant and in doing so, then we saw a very thick structure with a very thickened adjacent fat tissue that we were able to clearly determine was the appendix and the mesoappendix. There were no other extensions to this. This was a tube like structure that was coming off the cecum. We confirmed the anatomy of the cecum, therefore felt confident that I had identified it correctly. I found the ileocecal junction as well. I made sure before anything that we check the surrounding areas that I was not being fooled by the inflamed diseased anatomy. At this point, I felt very comfortable to take the LigaSure device and go across the mesoappendix down to the base of the appendix. Then, using a 45 mm laparoscopic stapler with a blue load, I came across the base. We had a nice flush staple line. We had held the stapler closed for about 10 seconds to allow the edema to get out of the tissues for better staple line. The staple line was hemostatic, flushed with the cecum. I was very happy with that. Specimen was placed in an EndoCatch bag, left on the side. We then turned our attention to cleaning up the pelvic and right lower quadrant area of all the suppurative changes. Suction director of consumer affairs was inserted, and I thoroughly with 2 liters of saline irrigated and suctioned out the area. The fluid coming back was essentially clear. I feel as though this was acute suppurative appendicitis. In looking at the appendix, I did not see any area where it had ruptured. I do not think we were dealing with a perforated appendicitis. Therefore, I did not leave a drain in place. After we confirmed that everything was fairly clean and hemostatic, we then removed the EndoCatch bag from the 12 mm port site. Using a Sergey-Michael closure device, we closed the fascia with an 0 Vicryl stitch. We then desufflated the abdomen, removed the remaining ports. Additional local was injected into the port sites. The Bovie was required for some minor skin hemostasis and the skin sites were closed with 4-0 Monocryl subcuticular stitches. Dermabond was used as a dressing after the skin had been cleaned and dried. The patient tolerated the procedure well. There were no complications. All counts were correct at the end of the case. There was nobody waiting for her for me to talk to at the end of the case. JOB# [id number] GRACIA/RAPHAEL
== END 2018-09-09 17:58 | disposition home or self-care (01) ==
LOC: ED 00:21 → 3B-SURG 09:03
PROVIDERS: ADMIT Internal Medicine; ATTEND Internal Medicine
DX: K35.80 Unspecified acute appendicitis (principal); D72.829 Elevated white blood cell count, unspecified; Z98.890 Other specified postprocedural states; Z79.899 Other long term (current) drug therapy
CPT/HCPCS: 36415; 44970; 74177; 80048; 80053; 81001; 83690; 85025; 85027; 88304; 96365; 96372; 96375; 96376; 99284; A4217; C9113; G0378; J0330; J1170; J1644; J1885; J2250; J2270; J2405; J2543; J2704; J2710; J7030; Q9967

== ENCOUNTER 2018-09-10 14:24 | Emergency (ER) | payer OTHER, SELFPAY ==
--- NOTE | 2018-09-10 14:58 | Emergency Department Report ---
Blank Doc - Documentation Documentation: This is a 68-year-old female that presents with cellulitis with boils to left abdominal area. Patient was [facility]. Cellulitis to incision site noted with blisters. This initial assessment/diagnostic orders/clinical plan/treatment(s) is/are subject to change based on patient's health status, clinical progression and re- assessment by fellow clinical providers in the ED. Further treatment and workup at subsequent clinical providers discretion. Patient/guardians urged not to elope from the ED as their condition may be serious if not clinically assessed and managed. Initial orders include: 1- Patient sent to MAIN ED for further evaluation and treatment 2- labs
[2018-09-10 15:17] LABS: Basophils % (Auto) 0.1 % (0.0-1.8); Eosinophils # (Auto) 0.2 K/mm3 (0.0-0.4); Eosinophils % (Auto) 1.7 % (0.0-4.3); Hematocrit 38.1 % (30.3-42.9); Hemoglobin 12.7 gm/dl (10.1-14.3); Lymphocytes # (Auto) 1.1 K/mm3 (1.2-5.4); Lymphocytes % (Auto) 10.2 % (13.4-35.0); Mean Corpuscular HGB Conc 34 % (30-34); Mean Corpuscular Volume 88 fl (79-97); Monocytes # (Auto) 0.6 K/mm3 (0.0-0.8); Monocytes % (Auto) 5.9 % (0.0-7.3); Platelet Count 245 K/mm3 (140-440); Red Blood Count 4.35 M/mm3 (3.65-5.03); Red Cell Distribution Width 14.3 % (13.2-15.2)
[2018-09-10 15:43] LABS: Alanine Aminotransferase 8 units/L (7-56); Albumin 3.1 g/dL (3.9-5); BUN/Creatinine Ratio 13; Bilirubin,Direct 0.9 mg/dL (0-0.2); Blood Urea Nitrogen 10 mg/dL (7-17); Calcium 9.2 mg/dL (8.4-10.2); Hemolysis Index 9
--- NOTE | 2018-09-10 18:41 | Emergency Department Report ---
ED Allergic Reaction HPI - General Chief complaint: Allergic Reaction Stated complaint: BLISTERS ALL OVER ABD/PAIN Time Seen by Provider: 09/10/18 14:55 Source: patient Mode of arrival: Wheelchair Limitations: No Limitations - History of Present Illness Initial Comments: 68-year-old female presents ED with allergic reaction to abdominal wall. Two nights ago patient underwent laparoscopic surgery for appendectomy. Patient was discharged yesterday. This morning she noticed a rash with blistering to her left abdomen, patient reports itching. Denies fever. The patient is discharged home on amoxicillin, which patient states she has taken before and did not have any allergic reaction to it. MD Complaint: allergic reaction -: This morning Symptoms: rash, itching, other (reports blisters). denies: nausea, vomiting Treatment Prior to Arrival: none - Related Data Previous Rx's Medication Instructions Recorded Last Taken Type Amoxicillin/Potassium Clav 1 each PO BID #14 tablet 09/09/18 Unknown Rx [Augmentin 875-125 Tablet] Ibuprofen 600 mg PO TID PRN #20 tablet 09/09/18 Unknown Rx Pantoprazole [Protonix] 40 mg PO QDAY #7 tablet 09/09/18 Unknown Rx Hydrocortisone 0.5% 1 applicatio TP TID #1 tube 09/10/18 Unknown Rx [Hydrocortisone 0.5% CREAM] Allergies Allergy/AdvReac Type Severity Reaction Status Date / Time acetaminophen [From Vicodin] Allergy Unknown Verified 09/08/18 00:38 hydrocodone [From Vicodin] Allergy Unknown Verified 09/08/18 00:38 ondansetron Allergy Unknown Verified 09/08/18 00:38 ED Review of Systems ROS: Stated complaint: BLISTERS ALL OVER ABD/PAIN Other details as noted in HPI Comment: All other systems reviewed and negative Constitutional: denies: chills, fever Gastrointestinal: abdominal pain. denies: nausea, vomiting Skin: rash, pruritus ED Past Medical Hx - Past Medical History Previous Medical History?: No - Surgical History Past Surgical History?: Yes Hx Appendectomy: Yes Additional Surgical History: - Social History Smoking Status: Never Smoker Substance Use Type: None - Medications Home Medications: Home Medications Medication Instructions Recorded Confirmed Last Taken Type Amoxicillin/Potassium Clav 1 each PO BID #14 tablet 09/09/18 Unknown Rx [Augmentin 875-125 Tablet] Ibuprofen 600 mg PO TID PRN #20 tablet 09/09/18 Unknown Rx Pantoprazole [Protonix] 40 mg PO QDAY #7 tablet 09/09/18 Unknown Rx Hydrocortisone 0.5% 1 applicatio TP TID #1 tube 09/10/18 Unknown Rx [Hydrocortisone 0.5% CREAM] ED Physical Exam - General Limitations: No Limitations General appearance: alert, in no apparent distress - Head Head exam: Present: atraumatic, normocephalic - Eye Eye exam: Present: normal appearance - ENT ENT exam: Present: mucous membranes moist - Neck Neck exam: Present: normal inspection - Respiratory Respiratory exam: Present: normal lung sounds bilaterally. Absent: respiratory distress - Cardiovascular Cardiovascular Exam: Present: regular rate, normal rhythm - GI/Abdominal GI/Abdominal exam: Present: soft, tenderness (mild diffuse tenderness), other (incision sites appear clean, dry, intact). Absent: distended - Extremities Exam Extremities exam: Present: normal inspection - Neurological Exam Neurological exam: Present: alert, oriented X3 - Psychiatric Psychiatric exam: Present: normal affect, normal mood - Skin Skin exam: Present: other (vertical area in LUQ, LLQ and just superior to umbilicus with urticarial rash, blistering only in LUQ, LLQ; does not follow a dermatome; no erythema present) ED Course Vital Signs 09/10/18 09/10/18 14:55 19:44 Temperature 98.0 F 98.8 F Pulse Rate 81 80 Respiratory 16 20 Rate Blood Pressure 134/66 Blood Pressure 141/56 [Left] O2 Sat by Pulse 95 100 Oximetry - Consultations Consultation #1: 09/10/18 18:40 Spoke w/ Dr Felix, states due to the vertical nature of the skin reaction, may possibly be from the Chloraprep skin prep as pt was then rotated. Will treat as contact dermatitis ED Medical Decision Making - Lab Data Result diagrams: 09/10/18 15:06 09/10/18 15:06 - Medical Decision Making 68 yo F with itching rash, blistering to left side of abdomen. Does not appear to be in a dermatomal distribution, such as shingles. Vitals normal, pt af ebrile, normal WBCs. Currently taking augmentin, pt states has had amoxicillin before and is not allergic. Spoke w/ pt;s surgeon, Dr Felix, suspects symptoms may be due to chloraprep with was applied during surgery. Appears to be a contact dermatitis. Solumedrol and benadryl given here in ED. Prescription given for topical hydrocortisone cream. Return precautions given. Outpatient follow-up advised. - Differential Diagnosis allergic reaction, dermatitis, zoster Critical care attestation.: If time is entered above; I have spent that time in minutes in the direct care of this critically ill patient, excluding procedure time. ED Disposition Clinical Impression: Contact dermatitis Disposition: - TO HOME OR SELFCARE Is pt being admited?: No Condition: Stable Instructions: Contact Dermatitis (ED) Prescriptions: Hydrocortisone 0.5% [Hydrocortisone 0.5% CREAM] 1 applicatio TP TID #1 tube Referrals: EMMY FELIX MD [Staff Physician] - 3-5 Days Time of Disposition: 18:49
[2018-09-10] MEDS ORDERED: SOLU-Medrol IV ONE (18:48)
[2018-09-10] MEDS ORDERED: BENADRYL PO ONE (18:51)
[2018-09-10 19:45] VITALS: BP 141/56
== END 2018-09-10 19:43 | disposition home or self-care (01) ==
LOC: ED 14:24
DX: L25.9 Unspecified contact dermatitis, unspecified cause (principal); Z90.49 Acquired absence of other specified parts of digestive tract; Z88.5 Allergy status to narcotic agent
CPT/HCPCS: 36415; 80048; 80076; 85025; 96374; 99283; J2930

== ENCOUNTER 2018-09-12 10:35 | Emergency (ER) | payer OTHER, SELFPAY ==
[2018-09-12 10:48] VITALS: BP 151/77
--- NOTE | 2018-09-12 13:01 | Emergency Department Report ---
ED Abdominal Pain HPI - General Chief Complaint: Abdominal Pain Stated Complaint: PAIN MEDICATION NOT WORKING Source: patient Mode of arrival: Wheelchair Limitations: No Limitations - History of Present Illness Initial Comments: 68-year-old -[place] female comes to the emergency room stating that her pain medication is not working for her abdominal pain. Patient is status post appendectomy repair from Friday. Patient was discharged home on the and returned on the for blisters on her left lateral abdomen. Patient reports he only discharge her home with ibuprofen and reports that is not helping with her pain. Patient reports that she has been eating applesauce and eggs and trying to get her appetite improved. Patient reports that she is drinking more than eating. Patient denies any fever or chills no nausea no vomiting. -: days(s) (5) Location: diffuse Radiation: none Migration to: no migration Quality: sharp Consistency: constant Improves With: nothing Worsens With: nothing Context: recent surgery/procedure (appendectomy on 09/08/2017) Associated Symptoms: denies: nausea, vomiting, diarrhea, fever - Related Data Previous Rx's Medication Instructions Recorded Last Taken Type Amoxicillin/Potassium Clav 1 each PO BID #14 tablet 09/09/18 Unknown Rx [Augmentin 875-125 Tablet] Ibuprofen 600 mg PO TID PRN #20 tablet 09/09/18 Unknown Rx Pantoprazole [Protonix] 40 mg PO QDAY #7 tablet 09/09/18 Unknown Rx Hydrocortisone 0.5% 1 applicatio TP TID #1 tube 09/10/18 Unknown Rx [Hydrocortisone 0.5% CREAM] traMADol [Ultram] 50 mg PO Q6HR PRN #12 tablet 09/12/18 Unknown Rx Allergies Allergy/AdvReac Type Severity Reaction Status Date / Time acetaminophen [From Vicodin] Allergy Unknown Verified 09/12/18 10:42 hydrocodone [From Vicodin] Allergy Unknown Verified 09/12/18 10:42 ondansetron Allergy Unknown Verified 09/12/18 10:42 ED Review of Systems ROS: Stated complaint: PAIN MEDICATION NOT WORKING Other details as noted in HPI Comment: All other systems reviewed and negative Gastrointestinal: abdominal pain. denies: nausea, vomiting, diarrhea, constipation ED Past Medical Hx - Surgical History Hx Appendectomy: Yes Additional Surgical History: - Social History Smoking Status: Never Smoker Substance Use Type: None - Medications Home Medications: Home Medications Medication Instructions Recorded Confirmed Last Taken Type Amoxicillin/Potassium Clav 1 each PO BID #14 tablet 09/09/18 Unknown Rx [Augmentin 875-125 Tablet] Ibuprofen 600 mg PO TID PRN #20 tablet 09/09/18 Unknown Rx Pantoprazole [Protonix] 40 mg PO QDAY #7 tablet 09/09/18 Unknown Rx Hydrocortisone 0.5% 1 applicatio TP TID #1 tube 09/10/18 Unknown Rx [Hydrocortisone 0.5% CREAM] traMADol [Ultram] 50 mg PO Q6HR PRN #12 tablet 09/12/18 Unknown Rx ED Physical Exam - General Limitations: No Limitations General appearance: alert, in no apparent distress - Head Head exam: Present: atraumatic, normocephalic - Eye Eye exam: Present: normal appearance - ENT ENT exam: Present: mucous membranes moist - Neck Neck exam: Present: normal inspection, full ROM - Respiratory Respiratory exam: Present: normal lung sounds bilaterally. Absent: respiratory distress - Cardiovascular Cardiovascular Exam: Present: regular rate, normal rhythm. Absent: systolic murmur, diastolic murmur, rubs, gallop - GI/Abdominal GI/Abdominal exam: Present: soft, tenderness, normal bowel sounds, other (blisters on the skin of her left lateral abdomen.). Absent: distended, guarding, rebound - Back Exam Back exam: Present: normal inspection - Neurological Exam Neurological exam: Present: alert, oriented X3 ED Course Vital Signs 09/12/18 10:46 Temperature 97.9 F Pulse Rate 88 Respiratory 16 Rate Blood Pressure 151/77 O2 Sat by Pulse 96 Oximetry ED Medical Decision Making - Medical Decision Making Patient has been evaluated by this provider [facility]. Patient is status post appendectomy on September 08. Patient was sent home on ibuprofen which she reports is not working with her pain. Discussed with Dr. Bundy that we will best manage her pain by Ultram and for her to follow-up with Dr. Felix. Critical care attestation.: If time is entered above; I have spent that time in minutes in the direct care of this critically ill patient, excluding procedure time. ED Disposition Clinical Impression: Abdominal pain Qualifiers: Abdominal location: generalized Qualified Code(s): R10.84 - Generalized abdominal pain Disposition: TO HOME OR SELFCARE Is pt being admited?: No Does the pt Need Aspirin: No Condition: Stable Instructions: Abdominal Pain (ED) Additional Instructions: Take pain medication only as needed. Do not operate heavy machinery while t aking pain medication. Increase her fluid intake eventually as tolerated. Please contact Dr. Felix's office for follow-up. I have listed his information below. for your convenience. Prescriptions: traMADol [Ultram] 50 mg PO Q6HR PRN #12 tablet PRN Reason: Pain Referrals: [facility] [Other] - 3-5 Days EMMY FELIX MD [Staff Physician] - 3-5 Days
== END 2018-09-12 13:50 | disposition home or self-care (01) ==
LOC: ED 10:35
DX: R10.84 Generalized abdominal pain (principal); Z90.49 Acquired absence of other specified parts of digestive tract; Z88.6 Allergy status to analgesic agent
CPT/HCPCS: 99281

== ENCOUNTER 2018-09-13 20:44 | Emergency (ER) | payer OTHER, SELFPAY ==
--- NOTE | 2018-09-13 21:23 | Emergency Department Report ---
Blank Doc - Documentation Documentation: 68 y/o female with a recent hx/o appy on 09/08/2018. Was seen on 09/10/18 for left lower abd blisters. Was seen yesterday for pain medication not working. Patient was than placed on Tramadol which she reports made her vomit. Patient still having abd pain and vomiting.
[2018-09-13 21:48] LABS: Hematocrit 38.3 % (30.3-42.9); Mean Corpuscular HGB Conc 34 % (30-34); Mean Corpuscular Volume 87 fl (79-97); Platelet Count 341 K/mm3 (140-440); Red Blood Count 4.43 M/mm3 (3.65-5.03); Red Cell Distribution Width 13.8 % (13.2-15.2)
[2018-09-13 21:54] LABS: Alanine Aminotransferase 24 units/L (7-56); BUN/Creatinine Ratio 15; Blood Urea Nitrogen 9 mg/dL (7-17); Calcium 8.7 mg/dL (8.4-10.2); Hemolysis Index 16
[2018-09-13] MEDS ORDERED: DILAUDID IV ONE (22:00)
[2018-09-13] MEDS ORDERED: NACL 0.9% 500 ML 500 ML IV ONE (22:00)
[2018-09-13] MEDS ORDERED: REGLAN IV ONE (22:00)
--- NOTE | 2018-09-13 22:02 | Emergency Department Report ---
ED General Adult HPI - General Chief complaint: Abdominal Pain Stated complaint: ABD PAIN, VOMITING Time Seen by Provider: 09/13/18 21:19 Source: patient, family, RN notes reviewed, old records reviewed Mode of arrival: Wheelchair Limitations: No Limitations - History of Present Illness Initial comments: This is a 68-year-old female. The patient was recently admitted to this hospital, for presumed acute appendicitis. The patient was also found to have trace bilateral pleural effusions, and mild uterine fibroid disease. Patient apparently had a laparoscopic appendectomy performed on 09/08/2018, and was discharged with a course of oral antibiotics. The patient endorses compliance with her medications. She presents to the emergency room with worsening lower abdominal pain. She reports having pain since her surgery. She vomited 5 times today, nonbloody, nonbilious. She denies dysuria today. She denies headache, neck pain, chest pain, shortness of breath. She denies fevers or chills. Her abdominal pain is in the bilateral lower quadrants, sharp, increases with palpation, decreases with rest and with position. Patient reports that she's been taking her tramadol since it was prescribed, and as far she knows, has not had any difficulty with it. She cannot recall what her specific allergies are to hydrocodone or acetaminophen. She believes that her allergy to Zofran is "vomiting." The patient has not endorsed any anaphylactic or anaphylactoid reactions to any of the aforementioned medications. Furthermore, during her recent hospitalization, she was given morphine, fentanyl, and hydromorphone, without documented incident. -: Gradual, days(s) Location: abdomen Severity scale (0 -10): 5 Quality: aching Consistency: other Improves with: other Worsens with: other - Related Data Previous Rx's Medication Instructions Recorded Last Taken Type Amoxicillin/Potassium Clav 1 each PO BID #14 tablet 09/09/18 Unknown Rx [Augmentin 875-125 Tablet] Pantoprazole [Protonix] 40 mg PO QDAY #7 tablet 09/09/18 Unknown Rx Hydrocortisone 0.5% 1 applicatio TP TID #1 tube 09/10/18 Unknown Rx [Hydrocortisone 0.5% CREAM] Metoclopramide [Reglan] 10 mg PO QID PRN #30 tablet 09/14/18 Unknown Rx Promethazine [Phenergan] 25 mg MD Q6HR PRN #15 supp.rect 09/14/18 Unknown Rx oxyCODONE [Roxicodone] 5 mg PO Q6HR PRN #15 tablet 09/14/18 Unknown Rx Allergies Allergy/AdvReac Type Severity Reaction Status Date / Time acetaminophen [From Vicodin] Allergy Unknown Verified 09/12/18 10:42 hydrocodone [From Vicodin] Allergy Unknown Verified 09/12/18 10:42 ondansetron Allergy Unknown Verified 09/12/18 10:42 ED Review of Systems ROS: Stated complaint: ABD PAIN, VOMITING Other details as noted in HPI Constitutional: malaise. denies: fever Eyes: denies: eye discharge ENT: denies: epistaxis Respiratory: denies: cough Cardiovascular: denies: chest pain Gastrointestinal: abdominal pain, nausea, vomiting Genitourinary: denies: urgency Musculoskeletal: denies: back pain Skin: denies: lesions Neurological: denies: weakness Psychiatric: anxiety ED Past Medical Hx - Past Medical History Previous Medical History?: No - Surgical History Past Surgical History?: Yes Hx Appendectomy: Yes Additional Surgical History: - Social History Smoking Status: Never Smoker Substance Use Type: None - Medications Home Medications: Home Medications Medication Instructions Recorded Confirmed Last Taken Type Amoxicillin/Potassium Clav 1 each PO BID #14 tablet 09/09/18 Unknown Rx [Augmentin 875-125 Tablet] Pantoprazole [Protonix] 40 mg PO QDAY #7 tablet 09/09/18 Unknown Rx Hydrocortisone 0.5% 1 applicatio TP TID #1 tube 09/10/18 Unknown Rx [Hydrocortisone 0.5% CREAM] Metoclopramide [Reglan] 10 mg PO QID PRN #30 tablet 09/14/18 Unknown Rx Promethazine [Phenergan] 25 mg MD Q6HR PRN #15 supp.rect 09/14/18 Unknown Rx oxyCODONE [Roxicodone] 5 mg PO Q6HR PRN #15 tablet 09/14/18 Unknown Rx ED Physical Exam - General Limitations: No Limitations General appearance: alert, in no apparent distress - Head Head exam: Present: atraumatic, normocephalic - Eye Eye exam: Present: normal appearance, EOMI. Absent: nystagmus - ENT ENT exam: Present: normal exam, normal orophraynx, mucous membranes moist, normal external ear exam - Neck Neck exam: Present: normal inspection, full ROM. Absent: tenderness, meningismus - Respiratory Respiratory exam: Present: normal lung sounds bilaterally. Absent: respiratory distress - Cardiovascular Cardiovascular Exam: Present: regular rate, normal rhythm, normal heart sounds. Absent: bradycardia, tachycardia, irregular rhythm, systolic murmur, diastolic murmur, rubs, gallop - GI/Abdominal GI/Abdominal exam: Present: soft, tenderness, other (there is diffuse lower abdominal tenderness. There is no rebound. Patient has chronic left-sided hem i-abdomen skin bullae, noted since prior evaluations.). Absent: distended, guarding, rebound, rigid, pulsatile mass - Extremities Exam Extremities exam: Present: normal inspection, full ROM, other (2+ pulses noted in the bilateral upper, lower extremities. Compartments soft. No long bony tenderness. The pelvis is stable.). Absent: pedal edema, joint swelling, calf tenderness - Back Exam Back exam: Present: normal inspection, full ROM. Absent: tenderness, CVA tenderness (R), paraspinal tenderness, vertebral tenderness - Neurological Exam Neurological exam: Present: alert, other (Extraocular movements intact. Tongue midline. No facial droop. Facial sensation intact to light touch in the V1, V2, V3 distribution bilaterally. 5 and 5 strength in 4 extremities.. Sensation is intact to light touch in 4 extremities.). Absent: motor sensory deficit - Psychiatric Psychiatric exam: Present: normal affect, normal mood - Skin Skin exam: Present: warm, dry, intact, normal color. Absent: rash ED Course Vital Signs 09/13/18 09/13/18 20:49 21:17 Temperature 98.0 F 98 F Pulse Rate 87 89 Respiratory 18 18 Rate Blood Pressure 132/70 132/70 O2 Sat by Pulse 97 96 Oximetry - Reevaluation(s) Reevaluation #1: 09/13/18 22:46 Differential diagnosis, including not limited to: Intra-abdominal abscess, medication side effect, side effect of anesthesia, postoperative complication Assessment and plan: 68-year-old female with diffuse abdominal tenderness, nausea and vomiting, afebrile with reassuring vital signs. We will treat her symptoms. A CT scan of the abdomen and pelvis will be obtained. We will reassess after her data points have resulted. We will discuss with her covering general surgeon. Reevaluation #2: 04/28/19 23:59 Patient feeling improved. Tolerating oral feeds. Contacting covered general surgeon, Dr. Alexander, she indicates she will have her office contact the patient tomorrow to arrange outpatient follow-up. Clinically doubt pneumonia based off of the history and physical, I favor atelectasis and alveoli de-recruitment secondary to patient laying on her back for a prolonged period of time. Nevertheless, she is still taking antibiotics, and I would not consider this treatment failure, in the unlikely event that this represents an atypical presentation of pneumonia. We will discharge the patient with modified prescription medications, instructions to closely follow-up. Patient and family have verbalized understanding ED Medical Decision Making - Lab Data Result diagrams: 09/13/18 21:26 09/13/18 21:26 Vital Signs 09/13/18 09/13/18 20:49 21:17 Temperature 98.0 F 98 F Pulse Rate 87 89 Respiratory 18 18 Rate Blood Pressure 132/70 132/70 O2 Sat by Pulse 97 96 Oximetry Lab Results 09/13/18 09/13/18 Range/Units 21:26 21:26 WBC 11.6 H (4.5-11.0) K/mm3 RBC 4.43 (3.65-5.03) M/mm3 Hgb 13.0 (10.1-14.3) gm/dl Hct 38.3 (30.3-42.9) % MCV 87 (79-97) fl MCH 29 (28-32) pg MCHC 34 (30-34) % RDW 13.8 (13.2-15.2) % Plt Count 341 (140-440) K/mm3 Sodium 136 L (137-145) mmol/L Potassium 3.5 L (3.6-5.0) mmol/L Chloride 98.2 (98-107) mmol/L Carbon Dioxide 26 (22-30) mmol/L Anion Gap 15 mmol/L BUN 9 (7-17) mg/dL Creatinine 0.6 L (0.7-1.2) mg/dL Estimated GFR > 60 ml/min BUN/Creatinine Ratio 15 % Glucose 112 H (65-100) mg/dL Calcium 8.7 (8.4-10.2) mg/dL Total Bilirubin 0.50 (0.1-1.2) mg/dL AST 16 (5-40) units/L ALT 24 (7-56) units/L Alkaline Phosphatase 129 (35-129) units/L Total Protein 6.3 (6.3-8.2) g/dL Albumin 3.0 L (3.9-5) g/dL Albumin/Globulin Ratio 0.9 % - EKG Data -: EKG Interpreted by Dc EKG shows normal: sinus rhythm Rate: normal - EKG Data 09/13/18 22:46 This is a normal sinus, 74 beats minute, normal axis, normal intervals, this EKG is not consistent with ST elevation myocardial infarction. - Radiology Data Radiology results: pending, report reviewed, image reviewed Print Report Referring Physician: TAWANA KHAN Patient Name: SVETA SULLIVAN Date of : 1950 Sex: Female Report Date: 2018-09-13 Report Status: Finalized Findings [facility] [address] [place] [address] Cat Scan Report Signed Patient: SVETA SULLIVAN MR#: [id number] : 1950 Acct:[id number] Age/Sex: 68 / F ADM Date: 09/13/18 Loc: ED Attending Dr: Ordering Physician: TAWANA KHAN MD Date of Service: 09/13/18 Procedure(s): CT abdomen pelvis w con Accession Number(s): [id number] cc: TAWANA KHAN MD PROCEDURE: CT ABDOMEN PELVIS W CON TECHNIQUE: Computerized axial tomography of the abdomen and pelvis was performed after the IV injection of iodinated nonionic contrast. CT DOSE LENGTH PRODUCT: 2568 mGycm HISTORY: Recent appendectomy post op pain COMPARISONS: September 08, 2018 . FINDINGS: Visualized lower thorax: There is moderate atelectasis/infiltrate and moderate effusions bilateral lower lungs.. Liver: Normal size and attenuation. Spleen: Normal size and attenuation. Gallbladder and biliary system: Normal. Pancreas: Normal. Adrenals: Normal. Kidneys: Normal. GI tract: The stomach is normal. There is a moderate-sized hiatal hernia. The bowel has normal caliber. There are surgical changes identified in the right lower quadrant of the abdomen. Minimal streaking of the pericecal fat is noted. The patient has had recent appendectomy. Minimal fluid is identified in the right lower quadrant of the abdomen. No formed abscess is seen on this study. The colon is normal.. . Lymph nodes and mesentery: Normal. Vasculature: Normal.. Bladder: Normal. Reproductive organs: No pelvic masses. Peritoneum: No free fluid. Musculoskeletal structures: No significant abnormality. Other: None . IMPRESSION: Postoperative changes are identified in the right lower quadrant of the abdomen. The patient is status post appendectomy. Minimal fluid in this region and slight streaking of the pericecal fat is noted. No formed abscess at this time. There is no evidence of intestinal or urinary tract obstruction. Bilateral lower lung moderate atelectasis/infiltrates with moderate effusions are noted. . This document is electronically signed by Meliza Grier DO., September 13 2018 11:22:37 PM ET Transcribed By: [facility] Dictated By: MELIZA GRIER MD Electronically Authenticated By: MELIZA GRIER MD Signed Date/Time: 09/13/18 9149 Critical care attestation.: If time is entered above; I have spent that time in minutes in the direct care of this critically ill patient, excluding procedure time. ED Disposition Clinical Impression: Abdominal pain, Nausea and vomiting in adult Disposition: DC-01 TO HOME OR SELFCARE Is pt being admited?: No Does the pt Need Aspirin: No Condition: Stable Instructions: Abdominal Pain (ED) Additional Instructions: Discontinue ibuprofen, tramadol. Continue antibiotics. Take Reglan as needed for nausea, vomiting. Use Phenergan suppository if Reglan medications Calcitrol nausea, vomiting. Your general surgeon's office should contact the patient first thing in the morning to arrange close outpatient follow-up. However, if p jayne does not hear from the office within the next 24 hours, please contact the office to arrange close outpatient follow-up. Please note that CT scan of abdomen and pelvis suggested nonspecific collapse of the bilateral lung brantley, possible pneumonia. This is most likely secondary to the patient laying on her back, and not taking deep enough breaths. Atypical presentation of pneumonia is also a possibility. Therefore, please make certain to take the antibiotics as they were prescribed. I also recommend that you follow up with either her primary care doctor or general surgeon for nonspecific lung findings within the next 5-7 days. Please return to the emergency room right away potential vomiting, change in mental status, confusion, inability to tolerate liquid feeds. Avoid consumption of Motrin, ibuprofen, Naprosyn, Aleve, heavy spicy foods, eat gentle foods, bland diet, and advance diet as tolerated. Referrals: BRIANA ALEXANDER DO [Staff Physician] - 3-5 Days EMMY FELIX MD [Staff Physician] - 3-5 Days
[2018-09-13 22:53] LABS: Band Neutrophils # (Manual) 0.1 K/mm3; Basophils % (Manual) 0 % (0.0-1.8); Eosinophils % (Manual) 0 % (0.0-4.3); Total Cells Counted 100
[2018-09-13 22:55] LABS: Giant Platelets Few
--- NOTE | 2018-09-13 23:25 | Cat Scan Report ---
PROCEDURE: CT ABDOMEN PELVIS W CON TECHNIQUE: Computerized axial tomography of the abdomen and pelvis was performed after the IV inject ion of iodinated nonionic contrast. CT DOSE LENGTH PRODUCT: 2568 mGycm HISTORY: Recent appendectomy post op pain COMPARISONS: September 08, 2018 . FINDINGS: Visualized lower thorax: There is moderate atelectasis/infiltrate and moderate effusions bilateral lo wer lungs.. Liver: Normal size and attenuation. Spleen: Normal size and attenuation. Gallbladder and biliary system: Normal. Pancreas: Normal. Adrenals: Normal. Kidneys: Normal. GI tract: The stomach is normal. There is a moderate-sized hiatal hernia. The bowel has normal calib er. There are surgical changes identified in the right lower quadrant of the abdomen. Minimal streaki ng of the pericecal fat is noted. The patient has had recent appendectomy. Minimal fluid is identifie d in the right lower quadrant of the abdomen. No formed abscess is seen on this study. The colon is n ormal.. . Lymph nodes and mesentery: Normal. Vasculature: Normal.. Bladder: Normal. Reproductive organs: No pelvic masses. Peritoneum: No free fluid. Musculoskeletal structures: No significant abnormality. Other: None . IMPRESSION: Postoperative changes are identified in the right lower quadrant of the abdomen. The pat ient is status post appendectomy. Minimal fluid in this region and slight streaking of the pericecal fat is noted. No formed abscess at this time. There is no evidence of intestinal or urinary tract obstruction. Bilateral lower lung moderate atelectasis/infiltrates with moderate effusions are noted. . This document is electronically signed by Meliza Grier DO., September 13 2018 11:22:37 PM ET
[2018-09-14 00:51] VITALS: BP 123/74
[2018-09-14] MEDS ORDERED: ROXICODONE PO ONE (00:52)
[2018-09-14] MEDS ORDERED: ROXICODONE ONE (03:09)
== END 2018-09-14 00:50 | disposition home or self-care (01) ==
LOC: ED 20:44
DX: R11.2 Nausea with vomiting, unspecified (principal); R10.30 Lower abdominal pain, unspecified; Z90.49 Acquired absence of other specified parts of digestive tract; Z88.6 Allergy status to analgesic agent
CPT/HCPCS: 36415; 74177; 80053; 82140; 82550; 83735; 85007; 85025; 93005; 93010; 96374; 96375; 99285; J1170; J2765; J7040; Q9967